=== PATIENT | female | born 1955 | race Asian ===

== ENCOUNTER 2019-12-29 02:11 | Emergency (ER) | payer OTHER ==
[~2019-12-29] VITALS: Ht 162.6 cm; Wt 54.4 kg
[2019-12-29 02:22] VITALS: Ht 162.6 cm; Wt 54.4 kg
[2019-12-29 02:44] LABS: BASOPHIL % 0.3 % (0-2); CARBON DIOXIDE 29.1 mmol/L (21-32); CHLORIDE SERUM 105 mmol/L (98-107); CREATININE SERUM 0.8 mg/dL (0.6-1.0); GFR1 > 60 mL/min; GLUCOSE SERUM 161 mg/dL (74-106); MAGNESIUM 2.1 mg/dL (1.8-2.4); PLATELET COUNT 211 x10^3mcL (130-400); POTASSIUM SERUM 3.7 mmol/L (3.5-5.1); RED CELL DISTRIBUTION WIDTH 13.9 % (11.5-14.5); SODIUM SERUM 142 mmol/L (136-145)
[2019-12-29 05:23] VITALS: BP 133/67
== END 2019-12-29 05:23 | disposition home or self-care (01) ==
LOC: ED 02:11
PROVIDERS: Emergency Medicine
DX: R55 Syncope and collapse (principal); R11.10 Vomiting, unspecified; I10 Essential (primary) hypertension; E11.9 Type 2 diabetes mellitus without complications; E03.9 Hypothyroidism, unspecified
CPT/HCPCS: 82962; J2405; J7030; Q0092